=== PATIENT | male | born 1985 | race Caucasian/White ===

== ENCOUNTER 2023-08-12 19:50 | Emergency (ER) | payer OTHER ==
[~2023-08-12] VITALS: Ht 190.5 cm; Wt 150.0 kg
[~2023-08-12 19:50] MED LIST: CORDARONE200 MG/TAB PO; ELIQUIS 5MG PO; NORVASC 5MG5 MG/TAB PO; PROTONIX 40MG T40 MG PO
[2023-08-12 19:58] VITALS: TEMP 98.9
[2023-08-12] MEDS ORDERED: Morphine 4 MG/ML VIAL IV ONE (20:30)
[2023-08-12] MEDS ORDERED: Ondansetron 4 MG/2 ML VIAL IV ONE (20:30)
[2023-08-12 21:38] VITALS: BP 153/94; PULSE 80
== END 2023-08-12 21:40 | disposition short-term general hospital (02) ==
LOC: COL.ER 19:50
DX: N50.811 Right testicular pain (principal); F17.210 Nicotine dependence, cigarettes, uncomplicated
CPT/HCPCS: J2270; J2405